=== PATIENT | male | born 1955 | race Caucasian/White ===

== ENCOUNTER 2016-11-07 11:12 | Inpatient (IN) | payer BC ==
[~2016-11-07] VITALS: Ht 167.6 cm; Wt 74.9 kg
[2016-11-07] MEDS ORDERED: ceFOXitin 2GM/100ML D5W 100 ML IV ONE (15:01)
[2016-11-07] MEDS ORDERED: NEOSTIGMINE 1 MG/ML INJ (10mg/10ML VIAL) IV ONE (15:01)
[2016-11-07] MEDS ORDERED: KETOROLAC TROMETH 60MG/2ML VIAL IM ONE (15:01)
[2016-11-07] MEDS ORDERED: GLYCOPYRROLATE 0.2 MG/ML 1ML VIAL IV ONE (15:01)
[2016-11-07] MEDS ORDERED: SUCCINYLCHOLINE CHLORIDE 20 MG/ML 10ML VIAL IV ONE (15:01)
[2016-11-07] MEDS ORDERED: HYDROmorphone HCL 2 MG/ML VL ONE (16:13)
[2016-11-07] MEDS ORDERED: fentaNYL CITRATE 100 MCG/2 ML VL ONE (16:13)
[2016-11-07] MEDS ORDERED: PROPOFOL 10 MG/ML 20 ML IV ONE (16:14)
[2016-11-07] MEDS ORDERED: ROCURONIUM 10MG/ML 10ML VIAL IV ONE (16:14)
[2016-11-07] MEDS ORDERED: ONDANSETRON HCL 4 MG/2 ML VIAL ONE (16:14)
[2016-11-07] MEDS ORDERED: fentaNYL CITRATE 10 ML ONE (16:14)
[2016-11-07] MEDS ORDERED: MIDAZOLAM HCL 1MG/1ML-2 ML VIAL ONE (16:14)
[2016-11-07] MEDS ORDERED: ceFAZolin 1GM VL ONE (17:20)
[2016-11-07] MEDS ORDERED: BUPIVACAINE W/ EPINEPH 0.25% INJ 50ML MDV ONE (17:20)
[2016-11-07] MEDS ORDERED: LIDOCAINE 1% HCL (LOCAL ANESTH.) INJ 20ML MDV ONE (17:20)
[2016-11-07] MEDS ORDERED: LIDOCAINE W/ EPINEPHRINE 1% 20ML VIAL ONE (17:20)
[2016-11-07] MEDS ORDERED: BUPIVACAINE 0.25% INJ 50ML VIAL ONE (17:20)
[2016-11-07] MEDS ORDERED: PROMETHAZINE HCL 25 MG/ML 1ML IM ONE (19:00)
[2016-11-07] MEDS ORDERED: HYDROmorphone HCL 2 MG/ML VL IV PRN ×2 (19:00→19:45)
[2016-11-07] MEDS ORDERED: KETOROLAC TROMETH 30 MG/ML 1ML VIAL IV ONE (19:00)
[2016-11-07] MEDS ORDERED: diphenhdrAMINE HCL 50 MG/1 ML VL IV PRN (19:45)
[2016-11-07] MEDS ORDERED: LABETALOL HCL 5 MG/ML 4ML SYRINGE IV PRN (21:45)
[2016-11-07 22:09] LABS: Calcium 8.3 mg/dL (8.5-10.1); Potassium 3.7 mmol/L (3.5-5.1)
[2016-11-07 22:11] LABS: BUN/Creatinine Ratio 13.4
[2016-11-07] MEDS: CEFOXITIN SODIUM 1 GM in D5W 5% 50 ML IV SCH (23:03)
[2016-11-07] MEDS: D5W/SOD CHL 0.45% 1,000 ML IV SCH (23:04)
[2016-11-07 23:06] VITALS: BP 152/90
[2016-11-08] MEDS: ONDANSETRON HCL 4 MG/2 ML VIAL IV PRN ×3 (03:16→14:00)
[2016-11-08] MEDS ORDERED: PNEUMOCOCCAL VACC POLYS 25 MCG/0.5 ML VIAL IM ONE (03:30)
[2016-11-08] MEDS ORDERED: INFLUENZA QUAD 2016-2017 0.5 ML SYRG IM ONE (03:30)
[2016-11-08 05:00] VITALS: BP 110/70
[2016-11-08] MEDS ORDERED: ATOR1TAB PO (05:39)
[2016-11-08] MEDS ORDERED: PHE100C PO (05:39)
[2016-11-08] MEDS: CEFOXITIN SODIUM 1 GM in D5W 5% 50 ML IV SCH ×2 (06:25→14:07)
[2016-11-08] MEDS: D5W/SOD CHL 0.45% 1,000 ML IV SCH ×3 (06:26→20:39)
[2016-11-08 09:00] VITALS: BP 122/63
[2016-11-08 12:30] LABS: Basophils # (auto) 0 uL; Eosinophils # (auto) 0 uL; Hematocrit 36.8 % (41.0-53.0); Hemoglobin 12.3 g/dL (13.5-17.5); Lymphocytes # (auto) 0.6 uL; Lymphocytes % (auto) 5.1 % (10.0-50.0); Mean Corpuscular Hgb Conc. 33.4 g/dL (32.0-36.0); Mean Corpuscular Volume 92.7 fL (80.0-100.0); Mean Platelet Volume 7.8 fL (7.4-10.4); Monocytes # (auto) 0.9 uL; Monocytes % (auto) 7.7 % (0.0-12.0); Neutrophils # (auto) 10.7 uL; Neutrophils % (auto) 87.2 % (37.0-80.0); Platelet Count (auto) 209 10^3/uL (140-450); Red Cell Distribution Width 13.8 % (11.6-16.0); White Blood Cell 12.3 10^3/uL (4.4-10.8)
[2016-11-08 13:00] VITALS: BP 174/96
[2016-11-08] MEDS: ACETAMINOPHEN/CODEINE#3 (300/30mg) TAB PO PRN ×2 (16:48→22:10)
[2016-11-08 17:00] VITALS: BP 117/67
[2016-11-08 20:00] VITALS: BP 126/64
[2016-11-08 22:00] VITALS: BP 130/81
[2016-11-09] MEDS: D5W/SOD CHL 0.45% 1,000 ML IV SCH ×2 (03:39→11:32)
[2016-11-09 06:23] VITALS: BP 120/61
[2016-11-09] MEDS: ACETAMINOPHEN/CODEINE#3 (300/30mg) TAB PO PRN ×2 (06:50→14:05)
[2016-11-09 08:00] VITALS: BP 134/70
[2016-11-09 09:00] VITALS: BP 113/72
[2016-11-09 13:00] VITALS: BP 164/79
[2016-11-09 17:06] VITALS: BP 121/59
== END 2016-11-09 20:30 | disposition home or self-care (01) | DRG 708 ==
LOC: SUR 11:12 → WEST WING 22:35
PROVIDERS: ADMIT Urology; ATTEND Urology
PROC: 8E0W4CZ Robotic Assisted Procedure of Trunk Region, Percutaneous Endoscopic Approach (ICD-10-PCS; 2016-11-07)
PROC: 07BC4ZZ Excision of Pelvis Lymphatic, Percutaneous Endoscopic Approach (ICD-10-PCS; 2016-11-07)
PROC: 0TQC4ZZ Repair Bladder Neck, Percutaneous Endoscopic Approach (ICD-10-PCS; 2016-11-07)
PROC: 0VT04ZZ Resection of Prostate, Percutaneous Endoscopic Approach (ICD-10-PCS; principal; 2016-11-07 17:52)
DX: C61 Malignant neoplasm of prostate (principal); N40.1 Benign prostatic hyperplasia with lower urinary tract symptoms; N39.41 Urge incontinence; E78.5 Hyperlipidemia, unspecified; Z98.1 Arthrodesis status; Z82.49 Family history of ischemic heart disease and other diseases of the circulatory system; Z83.3 Family history of diabetes mellitus; Z80.9 Family history of malignant neoplasm, unspecified
CPT/HCPCS: 36415; 80048; 85025; 86850; 86900; 86901; 93306; J0330; J0690; J0694; J1885; J2001; J2250; J2405; J2704; J3490; J7060